=== PATIENT | female | born 1955 | race Caucasian/White ===

== ENCOUNTER 2018-04-29 09:16 | Emergency (ER) | payer OTHER ==
[~2018-04-29] VITALS: Wt 63.2 kg
[~2018-04-29 09:16] MED LIST: GUAI-637 PO; IBUP-1542 PO; SODI44SP11 NASAL
[2018-04-29 09:17] VITALS: BP 140/74; PULSE 88; RESP 18
--- NOTE | 2018-04-29 09:44 | ERD ---
ER Documentation Chief Complaint Chief Complaint DYSURIA X 3 DAYS HPI 63-year-old female, previously healthy, presents the emergency department, complaining of 3 days with symptoms including frequency, burning sensation and malodorous urine, associated with lower back pain and pelvic pressure. The patient denies fevers, no chills, no nausea or vomiting. No medications taken at this time. The patient denies history of recurrent UTIs. ROS All systems reviewed and are negative except as per history of present illness. Medications Home Meds Active Scripts Phenazopyridine Hcl* (Pyridium*) 200 Mg Tab, 200 MG PO TID PRN for URINARY PAIN, #6 TAB Prov:MAGDA NICHOLSON MD 04/29/18 Ibuprofen* (Motrin*) 600 Mg Tab, 600 MG PO Q8, #12 TAB Prov:MAGDA NICHOLSON MD 04/29/18 Ciprofloxacin Hcl* (Ciprofloxacin Hcl*) 250 Mg Tablet, 250 MG PO BID, #10 TAB Prov:MAGDA NICHOLSON MD 04/29/18 Guaifenesin* (Robitussin*) 100 Mg/5 Ml Syrup, 200 MG PO Q6H PRN for COUGH, #120 ML Prov:MOISE WOODSON. MANAGER PHILOSOPHY 06/15/15 Sodium Chloride (Saline Nasal Fillmore) 45 Ml [place], 2 SPRAYS NASAL Q2H PRN for NASAL CONGESTION, #1 BOTTLE Prov:MOISE WOODSON. MANAGER PHILOSOPHY 06/15/15 Ibuprofen* (Motrin*) 600 Mg Tab, 600 MG PO Q6H PRN for PAIN AND OR ELEVATED TEMP, #30 TAB Prov:MOISE WOODSON. MANAGER PHILOSOPHY 06/15/15 Allergies Allergies: Coded Allergies: No Known Allergies (Verified Allergy, Mild, 04/29/18) PMhx/Soc Medical and Surgical Hx: pt denies Medical Hx, pt denies Surgical Hx History of Surgery: No Anesthesia Reaction: No Hx Neurological Disorder: No Hx Respiratory Disorders: No Hx Cardiac Disorders: No Hx Psychiatric Problems: No Hx Miscellaneous Medical Probl: No Hx Alcohol Use: No Hx Substance Use: No Hx Tobacco Use: No Smoking Status: Never smoker FmHx Family History: diabetes; No coronary disease Physical Exam Vitals Vital Signs Date Temp Pulse Resp B/P (MAP) Pulse Ox O2 O2 Flow FiO2 Time Delivery Rate 04/29/18 98.1 88 18 140/74 99 09:17 (96) Physical Exam Const: No acute distress Head: Atraumatic Eyes: Normal Conjunctiva ENT: Normal External Ears, Nose and Mouth. Neck: Full range of motion. No meningismus. Resp: Clear to auscultation bilaterally Cardio: Regular rate and rhythm, no murmurs Abd: Soft, non tender, non distended. Normal bowel sounds Skin: No petechiae or rashes Back: No midline or flank tenderness Ext: No cyanosis, or edema Neur: Awake and alert Psych: Normal Mood and Affect Results 24 hrs Laboratory Tests Test 04/29/18 09:53 Bedside Urine pH (LAB) 6.0 Bedside Urine Protein (LAB) 2+ Bedside Urine Glucose (UA) 0.50% Bedside Urine Ketones (LAB) 2+ Bedside Urine Blood 2+ Bedside Urine Nitrite (LAB) Positive Bedside Urine Leukocyte Esterase (L 1+ Current Medications Medications Dose Sig/Dane Start Time Status Last (Trade) Ordered Route PRN Stop Time Admin Dose Reason Admin Ibuprofen 400 mg ONCE ONCE 04/29/18 DC 04/29/18 (Motrin) PO 10:00 04/29/18 09:49 10:01 650 mg ONCE ONCE 04/29/18 DC 04/29/18 Acetaminophen PO 10:00 04/29/18 09:48 (Tylenol 10:01 Tab) Procedures/MDM Differential diagnosis include but not limited to: UTI, colitis, gastroenteritis, kidney stones, irritable bowel syndrome, inflammatory bowel syndrome, malabsorption syndrome, cholelithiasis, food intolerance, medication side effect, pancreatitis, diverticulitis, bowel obstruction. Low suspicion for acute abdomen Physical examination and clinical presentation consistent most likely with urinary tract infection. During the ED course the patient remained stable, no new complaints. Results and clinical impression discussed with patient who agrees with alex betancourt. The patient is stable to be treated outpatient and will be discharged home, some side effects of prescribed medications (headache, rash, nausea, vomiting, diarrhea, drowsiness, habituation, bleeding, hypertension, interactions with other medications) were reviewed. The patient was instructed to follow up with the primary care provider in the next 48h. If symptoms persist, worsen or new symptoms develop, then patient should return to the ED immediately. Instructions explained and given directly by me to the patient with acknowledgment and demonstrated understanding. Disclaimer: Inadvertent spelling and grammatical errors are likely due to EHR/dictation software use and do not reflect on the overall quality of patient care. Also, please note that the electronic time recorded on this note does not necessarily reflect the actual time of the patient encounter. Departure Diagnosis: Primary Impression: UTI (urinary tract infection) Condition: Stable Patient Instructions: Understanding Urinary Tract Infections (UTIs) Additional Instructions: Muchas anny por [facility] para sainz servicio. Esperamos que en sainz visita a la reggie de emergencia sainz problema medico haya sido solucionado y que se sienta mucho mejor. Para estar seguros que sainz mejoria sigue en proceso, le pedimos el favor de hacer sumit kristy de seguimiento medico con sainz doctor primario en los proximos 2-4 medel. Lleve con usted estos documentos y las medicinas recetadas. Si sonny sintomas empeoran, NO SE ESPERE, por favor regrese a reggie de emergencia INMEDIATAMENTE. En karri que usted no tenga un mdico de atencin primaria: Llame al mdico o clnica comunitaria de referencia que aparece abajo cara las horas de consultorio para hacer sumit kristy para que le vean. CLINICAS: [facility] [phone] [facility] [id number] [facility] [phone] [facility] [phone] [facility] [phone] [id number] [facility] [phone] MD Apr 29, 2018 09:44
[2018-04-29] MEDS ORDERED: CIPR-193 PO (09:56)
[2018-04-29] MEDS ORDERED: PHEN-538 PO (09:56)
[2018-04-29] MEDS ORDERED: IBUP-1542 PO (09:56)
[2018-04-29] MEDS ORDERED: IBUPROFEN 200 MG TAB PO ONE (10:00)
[2018-04-29] MEDS ORDERED: ACETAMINOPHEN 325 MG TAB PO ONE (10:00)
== END 2018-04-29 09:54 | disposition home or self-care (01) ==
LOC: FTE 09:16
DX: N39.0 Urinary tract infection, site not specified (principal)
CPT/HCPCS: 81003; Z7502; Z7610; 99283